=== PATIENT | female | born 1940 | race Caucasian/White ===

== ENCOUNTER 2017-01-18 08:45 | Outpatient (CLI) | payer MEDICARE, BC ==
[2017-01-18] MEDS ORDERED: Iopamidol 370 76% 100 ML VIAL ONE (11:33)
--- NOTE | 2017-01-18 12:19 | CT ---
ABDOMEN CT WITH CONTRAST PELVIC CT WITH CONTRAST: Date: 01/18/17 HISTORY: Upper abdominal pain that radiates to back. COMPARISON: None. TECHNIQUE: Abdomen and pelvic CT are performed with IV and oral contrast. Coronal reformatted images are submitt ed for interpretation. FINDINGS: ABDOMEN CT: Patchy ground-glass opacities and linear opacities in the lung bases suggesting chronic change. Heart is enlarged. No significant pericardial fluid. Coronary artery calcifications are identified. The de scending thoracic aorta and the abdominal aorta have a normal caliber. No periaortic fat stranding. No gastrohepatic, retrocrural, or periportal lymphadenopathy. Gallbladder is unremarkable. Intra and extrahepatic portal vein is patent. Liver, spleen, pancreas, and adrenal glands have appropriate enhancement. No mesenteric mass, lymphadenopathy, free air, or free fluid. Symmetric enhancement of the kidneys. Hypodensities in the left and right renal cortex are too small to characterize, but are statistically favored to be cysts. Bilaterally, no obstructive uropathy. Gastric mucosa, duodenum, and multiple normal caliber small bowel loops are identified. Ileocecal raheem ction is normal. Normal caliber contrast-filled appendix. Contrast and fecal material in a nondistend ed, nondilated colon. PELVIC CT: Uterus and adnexal structures are unremarkable. Urinary bladder is unremarkable. No pelvic mass, lymphadenopathy, free air, or free fluid. There are no lytic or blastic lesions in the osseous structures. IMPRESSION: 1. No acute abnormality in the abdomen or pelvis. 2. No evidence of bowel obstruction. 3. Normal caliber appendix. 4. Bilateral renal cysts are suspected. POS: [facility]
== END 2017-01-18 08:46 | disposition home or self-care (01) ==
LOC: CT 08:45
PROVIDERS: ATTEND Internal Medicine Gastroenterology
DX: R10.9 Unspecified abdominal pain (principal)
CPT/HCPCS: 74177